=== PATIENT | female | born 1955 | race Caucasian/White ===

== ENCOUNTER 2016-10-29 13:40 | Outpatient (CLI) | payer OTHER | END 2016-10-29 13:41 | disposition home or self-care (01) | DX: Z12.31 Encounter for screening mammogram for malignant neoplasm of breast (principal) ==

== ENCOUNTER 2017-06-01 11:46 | Emergency (ER) | payer OTHER ==
[2017-06-01 13:01] LABS: BASOPHILS % (AUTO) 0.5 %; EOSINOPHILS # (AUTO) 0.1 10^3/uL (0.0-0.7); EOSINOPHILS % (AUTO) 0.7 %; HCT - HEMATOCRIT 37.5 % (37.0-47.0); HGB - HEMOGLOBIN 13.2 g/dL (12.0-16.0); LYMPHOCYTES # (AUTO) 2.6 10^3/uL (1.5-3.5); LYMPHOCYTES % (AUTO) 24.7 %; MEAN CORPUSCULAR HEMOGLOBIN 31.9 pg (27.0-31.0); MEAN CORPUSCULAR HGB CONC 35.4 g/dL (32.0-36.0); MEAN CORPUSCULAR VOLUME 90.2 fL (81.0-99.0); MEAN PLATELET VOLUME 6.7 fL (7.9-10.8); MONOCYTES # (AUTO) 0.6 10^3/uL (0.0-1.0); MONOCYTES % (AUTO) 5.8 %; NEUTROPHILS # (AUTO) 7.1 10^3/uL (1.5-6.6); NEUTROPHILS % (AUTO) 68.3 %; RED BLOOD COUNT 4.15 10^6/uL (4.20-5.40); RED CELL DISTRIBUTION WIDTH 12.2 % (12.0-15.0); UNCORRECTED WHITE BLOOD COUNT 10.4 x10^3/uL; WHITE BLOOD COUNT 10.4 x10^3/uL (4.8-10.8)
--- NOTE | 2017-06-01 13:13 | ED Physician Documentation ---
PD HPI HEADACHE - Stated complaint Stated Complaint: HIGH BP/TOLENTINO/HOT FLASHES - Chief complaint Chief Complaint: General - History obtained from History obtained from: Patient - History of Present Illness Timing - onset: Today, Last night (she had brief (few seconds) of sharp pain in right chest, then was okay. Had another episode brief pain right lateral chest at work. 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, 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 - Present Medications Home Medications: Ambulatory Orders Medication Instructions Recorded Confirmed Gemfibrozil [Lopid] 600 mg PO BIDAC 02/24/13 06/01/17 Estrogens, Conjugated [Premarin] 0.3 mg ORAL DAILY 03/31/16 06/01/17 Hydrochlorothiazide 25 mg ORAL DAILY 03/31/16 06/01/17 Losartan [Cozaar] 100 mg ORAL DAILY 03/31/16 06/01/17 Meloxicam 15 mg PO DAILY 03/31/16 06/01/17 Omeprazole [PriLOSEC] 20 mg ORAL DAILY 03/31/16 06/01/17 - Allergies Allergies/Adverse Reactions: Allergies Allergy/AdvReac Type Severity Reaction Status Date / Time morphine Allergy Rash Verified 06/01/17 11:56 - Social History Does the pt smoke?: No Smoking Status: Never smoker Does the pt drink ETOH?: Yes Does the pt have substance abuse?: No - Immunizations Immunizations are current?: Yes - POLST Patient has POLST: No PD ED PE NORMAL - General General: Alert and oriented X 3, Well developed/nourished - HEENT HEENT: Atraumatic, Ears normal, Pharynx benign - Neck Neck: Supple, no meningeal sign, No adenopathy - Cardiac Cardiac: RRR, No murmur - Abdomen Abdomen: Soft, Non tender - Female Female : Deferred - Rectal Rectal: Deferred - Back Back: No CVA TTP - Derm Derm: Normal color, Warm and dry - Extremities Extremities: No tenderness to palpate, No edema, No calf tenderness / cord - Neuro Neuro: Alert and oriented X 3, No motor deficit, Normal speech - Psych Psych: Normal mood, Normal affect Results - Vitals Vitals: Oxygen O2 Source Room air - EKG (time done) on presentation Rhythm: NSR [place]: Normal Intervals: Normal [place] QRS: Normal Ischemia: Normal ST segments, ST elevation c/w ischemia - Labs Labs: Laboratory Tests 06/01/17 06/01/17 06/01/17 12:54 12:54 12:54 WBC 10.4 RBC 4.15 L Hgb 13.2 Hct 37.5 MCV 90.2 MCH 31.9 H MCHC 35.4 RDW 12.2 Plt Count 318 MPV 6.7 L Neut # 7.1 H Lymph # 2.6 Powell # 0.6 Eos # 0.1 Baso # 0.0 Absolute Nucleated RBC 0.00 Nucleated RBC % 0.0 Sodium 137 Potassium 3.6 Chloride 101 Carbon Dioxide 24 Anion Gap 12.0 BUN 26 H Creatinine 0.9 Estimated GFR (MDRD) 63 L Glucose 104 H Calcium 9.7 Total Bilirubin 0.7 AST 31 ALT 27 Alkaline Phosphatase 47 Troponin I < 0.04 Total Protein 7.6 Albumin 4.7 Globulin 2.9 Albumin/Globulin Ratio 1.6 Lipase 27 PD MEDICAL DECISION MAKING - ED course Complexity details: reviewed results, considered differential (chest pain was fleeting and is not present now. ), d/w patient Departure - Departure Disposition: 01 Home, Self Care Clinical Impression: Hot flashes, Chest discomfort High blood pressure Qualifiers: Hypertension type: unspecified Qualified Code(s): I10 - Essential (primary) hypertension Condition: Stable Record reviewed to determine appropriate education?: Yes Instructions: ED Chest Pain Atypical Unkn Cause, ED HTN Established Follow-Up: Chris Lin DO [Primary Care Provider] - Comments: Check your blood pressure periodically over the next week or so. See if it is consistently high or was just elevated today because of not feeling well. I do not know the cause of your symptoms today. Consider possible viral illness. The hot flashes may have also been hormonal. There is no signs of heart attack or heart irritation going on at the moment. Recheck if you have recurring episodes. Your heart rate was reportedly higher earlier and intermittent irregular heart rate could cause the symptoms he had as well. It appears normal at this time. Follow-up with your primary care later in the week. Call for an appointment. Discharge Date/Time: 06/01/17 13:52
[2017-06-01 13:14] LABS: ALBUMIN/GLOBULIN RATIO 1.6 (1.0-2.2); BILIRUBIN,TOTAL 0.7 mg/dL (0.2-1.0); CALCIUM 9.7 mg/dL (8.5-10.3); CREATININE 0.9 mg/dL (0.4-1.0); POTASSIUM 3.6 mmol/L (3.5-5.0); TOTAL PROTEIN 7.6 g/dL (6.7-8.2)
[2017-06-01 13:44] VITALS: BP 145/76
== END 2017-06-01 13:52 | disposition home or self-care (01) ==
LOC: ED 11:46
DX: N95.1 Menopausal and female climacteric states (principal); R07.9 Chest pain, unspecified; I10 Essential (primary) hypertension
CPT/HCPCS: 36415; 80053; 83690; 84484; 85025; 93005; 99283; 99284

== ENCOUNTER 2017-06-04 07:55 | Outpatient (CLI) | payer OTHER | END 2017-06-04 07:56 | disposition home or self-care (01) | LOC: LAB 07:55 | PROVIDERS: ATTEND Family Medicine | DX: R51 Headache (principal) | CPT/HCPCS: 36415; 85651; 86140 ==

== ENCOUNTER 2017-06-05 10:23 | Outpatient (CLI) | payer OTHER ==
--- NOTE | 2017-06-05 17:06 | CT Report ---
EXAM: CT HEAD EXAM DATE: 06/05/2017 10:54 AM. CLINICAL HISTORY: HEADACHE. COMPARISON: None. TECHNIQUE: Multiaxial CT images were obtained from the foramen magnum to the vertex. IV contrast: Non e. Reformats: Coronal. In accordance with CT protocol optimization, one or more of the following dose reduction techniques w ere utilized for this exam: automated exposure control, adjustment of mA and/or KV based on patient s ize, or use of iterative reconstructive technique. FINDINGS: Parenchyma: No intraparenchymal hemorrhage. No evidence of mass, midline shift, or CT findings of acu te infarction. Rae-white differentiation is distinct. Extraaxial Spaces: Normal for age. No subdural or epidural collections identified. Ventricles: The ventricles and cortical sulci are within normal limits. Sinuses: Imaged paranasal sinuses, orbits, and mastoids show no significant abnormality. Bones: No evidence of fracture or calvarial defect. Other: Diffuse chronic microangiopathic white matter changes are evident. IMPRESSION: Mild generalized age-related cortical atrophic changes without evidence of acute intracra nial abnormality. [facility] Referring Provider Line: [phone] SITE ID: [id number]
== END 2017-06-05 10:24 | disposition home or self-care (01) ==
LOC: DI 10:23
PROVIDERS: ATTEND Family Medicine
DX: R51 Headache (principal)
CPT/HCPCS: 70450

== ENCOUNTER 2017-12-03 09:26 | Emergency (ER) | payer OTHER ==
[2017-12-03 10:44] LABS: BASOPHILS % (AUTO) 0.2 %; EOSINOPHILS % (AUTO) 0.2 %; LYMPHOCYTES # (AUTO) 1.4 10^3/uL (1.5-3.5); LYMPHOCYTES % (AUTO) 11.3 %; MEAN CORPUSCULAR HEMOGLOBIN 31.7 pg (27.0-31.0); MEAN CORPUSCULAR HGB CONC 34.9 g/dL (32.0-36.0); MEAN CORPUSCULAR VOLUME 90.9 fL (81.0-99.0); MEAN PLATELET VOLUME 7.6 fL (7.9-10.8); MONOCYTES # (AUTO) 1.3 10^3/uL (0.0-1.0); MONOCYTES % (AUTO) 10.1 %; NEUTROPHILS # (AUTO) 9.9 10^3/uL (1.5-6.6); NEUTROPHILS % (AUTO) 78.2 %; PLT - PLATELET COUNT 268 10^3/uL (130-450); RED CELL DISTRIBUTION WIDTH 12.5 % (12.0-15.0); WHITE BLOOD COUNT 12.7 x10^3/uL (4.8-10.8)
[2017-12-03] MEDS ORDERED: SODIUM CHLORIDE 0.9% 1,000 ML IV ONE (10:51)
[2017-12-03] MEDS ORDERED: ONDANSETRON 4 MG/2 ML VIAL IVP STA (10:51)
[2017-12-03] MEDS ORDERED: ACETAMINOPHEN 1,000 MG/100 ML 100 ML IV STA (10:52)
[2017-12-03 10:53] LABS: ALBUMIN 3.8 g/dL (3.2-5.5); BILIRUBIN,TOTAL 0.5 mg/dL (0.2-1.0); CALCIUM 8.6 mg/dL (8.5-10.3); CREATININE 0.7 mg/dL (0.4-1.0); TOTAL PROTEIN 7.6 g/dL (6.7-8.2)
[2017-12-03 10:58] LABS: BILIRUBIN,URINE NEGATIVE (NEGATIVE); GLUCOSE, URINE (UA) NEGATIVE (NEGATIVE); KETONES,URINE (UA) TRACE mg/dL (NEGATIVE); LEUKOCYTE ESTERASE, URINE SMALL (NEGATIVE); NITRITE,URINE POSITIVE (NEGATIVE); OCCULT BLOOD,URINE MODERATE (NEGATIVE); PROTEIN,URINE 100 mg/dL (NEGATIVE); UROBILINOGEN,URINE 0.2 (NORMAL) E.U./dL (NORMAL)
[2017-12-03 11:01] LABS: CLARITY,URINE HAZY (CLEAR)
[2017-12-03 11:06] LABS: BACTERIA,URINE Many /HPF (None Seen); SQUAMOUS EPITHELIAL CELL,UR FEW Squamous (<= Few)
[2017-12-03] MEDS ORDERED: cefTRIAXone 1 GM in SODIUM CHLORIDE 0.9% MINIBAG 100 ML IV STA (11:11)
[2017-12-03] MEDS ORDERED: POTASSIUM CHLOR 10 MEQ/100 ML 10 MEQ/100 ML BAG IV ONE (11:11)
[2017-12-03] MEDS ORDERED: POTASSIUM CHLORIDE 20 MEQ TABLET PO STA (11:12)
--- NOTE | 2017-12-03 12:31 | ED Physician Documentation ---
PD HPI ABD PAIN - Stated complaint Stated Complaint: ABD PX/V/D - Chief complaint Chief Complaint: Abd Pain - History obtained from History obtained from: Patient - History of Present Illness Timing - duration: Days (3) Timing - details: Still present Location: Suprapubic Associated symptoms: Nausea, Vomiting Similar symptoms before: Has not had sx before - Additional information Additional information: The patient is a 62-year-old female who presents with lower abdominal pain that started 3 days ago and has gotten worse today. She reports associated nausea with vomiting 3 today. She denies diarrhea or dysuria, but does admit to urgency of urination. She is uncertain about fever. She denies history of similar symptoms in the past. Her past surgical history is significant for appendectomy and hysterectomy. Review of Systems Constitutional: reports: Chills, Fatigue Nose: denies: Congestion Throat: denies: Sore throat Cardiac: denies: Chest pain / pressure Respiratory: denies: Dyspnea, Cough GI: reports: Abdominal Pain, Nausea, Vomiting. denies: Diarrhea : reports: Other (Urgency of urination.). 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 - Present Medications Home Medications: Ambulatory Orders Medication Instructions Recorded Confirmed Gemfibrozil [Lopid] 600 mg PO BIDAC 02/24/13 06/01/17 Estrogens, Conjugated [Premarin] 0.3 mg ORAL DAILY 03/31/16 06/01/17 Hydrochlorothiazide 25 mg ORAL DAILY 03/31/16 06/01/17 Losartan [Cozaar] 100 mg ORAL DAILY 03/31/16 06/01/17 Meloxicam 15 mg PO DAILY 03/31/16 06/01/17 Omeprazole [PriLOSEC] 20 mg ORAL DAILY 03/31/16 06/01/17 Phenazopyridine HCl [Pyridium] 200 mg PO TID PRN #10 tablet 12/03/17 Promethazine [Phenergan] 25 - 50 mg PO Q6H PRN #10 tab 12/03/17 cephALEXin [Cephalexin] 500 mg PO TID #20 tablet 12/03/17 - Allergies Allergies/Adverse Reactions: Allergies Allergy/AdvReac Type Severity Reaction Status Date / Time morphine Allergy Rash Verified 06/01/17 11:56 - Social History Does the pt smoke?: No Smoking Status: Never smoker Does the pt drink ETOH?: Yes Does the pt have substance abuse?: No - Immunizations Immunizations are current?: Yes - POLST Patient has POLST: No PD ED PE NORMAL - Vitals Vital signs reviewed: Yes (Initially hypertensive.) - General General: Alert and oriented X 3, Well developed/nourished - HEENT HEENT: Atraumatic, Moist mucous membranes, Pharynx benign - Neck Neck: Supple, no meningeal sign, No adenopathy, No JVD - Cardiac Cardiac: RRR, No murmur - Respiratory Respiratory: No respiratory distress, Clear bilaterally - Abdomen Abdomen: Normal bowel sounds, Soft, Other (Tenderness to palpation across the lower abdomen, without rebound tenderness or guarding.) - Back Back: No CVA TTP - Derm Derm: No rash - Extremities Extremities: No edema, No calf tenderness / cord - Neuro Neuro: Alert and oriented X 3, No motor deficit, Normal speech Results - Vitals Vitals: Oxygen O2 Source Room air - Labs Labs: Microbiology 12/03/17 10:50 Urine Culture - Final Urine,Clean Catch Escherichia Coli Laboratory Tests 12/03/17 12/03/17 12/03/17 09:50 09:50 10:50 WBC 12.7 H RBC 4.10 L Hgb 13.0 Hct 37.3 MCV 90.9 MCH 31.7 H MCHC 34.9 RDW 12.5 Plt Count 268 MPV 7.6 L Neut # 9.9 H Lymph # 1.4 L [place] # 1.3 H Eos # 0.0 Baso # 0.0 Absolute Nucleated RBC 0.00 Nucleated RBC % 0.0 Sodium 132 L Potassium 2.7 L Chloride 100 L Carbon Dioxide 20 L Anion Gap 12.0 BUN 17 Creatinine 0.7 Estimated GFR (MDRD) 84 L Glucose 132 H Calcium 8.6 Total Bilirubin 0.5 AST 22 ALT 22 Alkaline Phosphatase 63 Total Protein 7.6 Albumin 3.8 Globulin 3.8 Albumin/Globulin Ratio 1.0 Lipase 11 L Urine Color YELLOW Urine Clarity HAZY Urine pH 6.0 Ur Specific [place] 1.025 Urine Protein 100 H Urine Glucose (UA) NEGATIVE Urine Ketones TRACE Urine Occult Blood MODERATE H Urine Nitrite POSITIVE H Urine Bilirubin NEGATIVE Urine Urobilinogen 0.2 (NORMAL) Ur Leukocyte Esterase SMALL H Urine RBC 6-10 H Urine WBC >25 H Ur Squamous Epith Cells FEW Squamous Urine Bacteria Many H Ur Microscopic Review INDICATED Urine Culture Comments INDICATED PD MEDICAL DECISION MAKING - ED course Complexity details: reviewed results, re-evaluated patient, considered differential, d/w patient, d/w family ED course: The patient's presentation is most consistent with acute cystitis with associated vomiting, mild dehydration, and hypokalemia. Her presentation does not suggest sepsis or pyelonephritis. CBC reveals an elevated white count of 12.7. Chemistry panel reveals hypokalemia with potassium of 2.7. Urinalysis is positive for greater than 25 white cells per high-powered field and many bacteria. Culture and sensitivity are pending. Treatment in the emergency department included administration of normal saline 1 L IV, ceftriaxone 1 g IV, acetaminophen 1 g IV, potassium 20 mEq orally and 10 mEq IV. At the time of discharge the patient felt subjectively much improved and her vital signs were normal. I discussed with her and her the diagnosis, antibiotic treatment and outpatient follow-up, as well as potentially worrisome signs or symptoms that should prompt reevaluation in the emergency department. She is being discharged with prescriptions for cephalexin , Pyridium, and Phenergan. Departure - Departure Disposition: 01 Home, Self Care Clinical Impression: Hypokalemia Urinary tract infection Qualifiers: Urinary tract infection type: acute cystitis Hematuria presence: with hematuria Qualified Code(s): N30.01 - Acute cystitis with hematuria Vomiting Qualifiers: Vomiting type: unspecified Vomiting Intractability: non-intractable Nausea presence: with nausea Qualified Code(s): R11.2 - Nausea with vomiting, unspecified Condition: Stable Instructions: ED UTI Cystitis Female Follow-Up: Chris Lin DO [Primary Care Provider] - Prescriptions: cephALEXin [Cephalexin] 500 mg PO TID #20 tablet Phenazopyridine HCl [Pyridium] 200 mg PO TID PRN #10 tablet PRN Reason: pain with urination Promethazine [Phenergan] 25 - 50 mg PO Q6H PRN #10 tab PRN Reason: Nausea / Vomiting Comments: Drink plenty of fluids, including cranberry juice. Take cephalexin 3 times daily as prescribed. You can use Pyridium as prescribed if needed for painful urination. You can use Phenergan as prescribed if needed for nausea. Follow up with your primary physician within 1-2 weeks. Call to schedule appointment. Return to the emergency department if you develop increasing abdominal pain, persistent vomiting, fever with shaking chills, or otherwise worsening symptoms. Discharge Date/Time: 12/03/17 12:45
[2017-12-03 12:46] VITALS: BP 112/74
== END 2017-12-03 12:45 | disposition home or self-care (01) ==
LOC: ED 09:26
DX: E87.6 Hypokalemia (principal); N30.01 Acute cystitis with hematuria; R11.2 Nausea with vomiting, unspecified; E86.0 Dehydration; I10 Essential (primary) hypertension; E78.00 Pure hypercholesterolemia, unspecified
CPT/HCPCS: 36415; 80053; 81001; 83690; 85025; 87086; 87181; 96365; 96368; 96375; 99283; 99284; A9270; J0131; 81003

== ENCOUNTER 2017-12-07 11:50 | Outpatient (CLI) | payer OTHER ==
[2017-12-07 18:39] LABS: BASOPHILS % (AUTO) 0.6 %; HGB - HEMOGLOBIN 13.8 g/dL (12.0-16.0); LYMPHOCYTES % (AUTO) 31.3 %; MEAN CORPUSCULAR HEMOGLOBIN 31.1 pg (27.0-31.0); MEAN CORPUSCULAR HGB CONC 33.4 g/dL (32.0-36.0); MEAN PLATELET VOLUME 6.9 fL (7.9-10.8); MONOCYTES % (AUTO) 6.3 %; NEUTROPHILS % (AUTO) 59.8 %; PLT - PLATELET COUNT 495 10^3/uL (130-450); RED BLOOD COUNT 4.43 10^6/uL (4.20-5.40); RED CELL DISTRIBUTION WIDTH 12.6 % (12.0-15.0); WHITE BLOOD COUNT 9.6 x10^3/uL (4.8-10.8)
[2017-12-07 18:44] LABS: ABNORMAL LYMPHS % (MANUAL) 0 %
[2017-12-07 18:58] LABS: BUN - BLOOD UREA NITROGEN 18 mg/dL (6-20); CALCIUM 9.3 mg/dL (8.5-10.3); CARBON DIOXIDE - CO2 23 mmol/L (21-32); CHLORIDE 105 mmol/L (101-111); CHOLESTEROL 186 mg/dL; CREATININE 0.7 mg/dL (0.4-1.0); GFR - MDRD 84 (>89); GLUCOSE 91 mg/dL (70-100); HDL CHOLESTEROL 47 mg/dL; LDL CHOLESTEROL,CALCULATED 100 mg/dL; LDL/HDL RATIO 2.1 (<4.4); SODIUM 138 mmol/L (135-145); VLDL CHOLESTEROL 39 mg/dL
[2017-12-07 19:05] LABS: BAND NEUTROPHILS % (MANUAL) 4 %; DIFFERENTIAL COMMENT MANUAL DIFFERENTIAL; EOSINOPHILS # (MANUAL) 0.5 10^3/uL (0-0.7); LYMPHOCYTES # (MANUAL) 2.4 10^3/uL (1.5-3.5); LYMPHOCYTES % (MANUAL) 25 %; METAMYELOCYTES % (MANUAL) 1 %; MONOCYTES # (MANUAL) 0.5 10^3/uL (0.0-1.0); MYELOCYTES % (MANUAL) 1 %; NEUTROPHILS % (MANUAL) 59 %; PLATELET ESTIMATE, MANUAL INCREASED (>450,000) (NORMAL); PLATELET MORPHOLOGY NORMAL APPEARANCE (NORMAL); RBC MORPHOLOGY (MULTIPLE) NORMAL APPEARANCE (NORMAL)
== END 2017-12-07 11:51 | disposition home or self-care (01) ==
LOC: LAB.WCP 11:50
PROVIDERS: ATTEND Physician Assistant
DX: Z00.00 Encounter for general adult medical examination without abnormal findings (principal); E87.6 Hypokalemia; R53.83 Other fatigue
CPT/HCPCS: 36415; 80048; 80061; 83721; 84443; 85025

== ENCOUNTER 2018-05-03 13:22 | Outpatient (CLI) | payer OTHER ==
--- NOTE | 2018-05-04 16:34 | DEXA Report ---
Reason: POSTMENOPAUSAL STATUS Procedure Date: 05/03/2018 Accession Number: [id number] / [id number] Procedure: DEX - Dexa Spine and/or Hip CPT Code: FULL RESULT: EXAM: Dexa Spine and/or Hip DATE: 05/03/2018 2:15 PM CLINICAL HISTORY: POSTMENOPAUSAL STATUS TECHNIQUE: Dual energy x-ray absorptiometry (DXA) was performed on a IOCOM System. Regions measured are the AP Spine, femoral neck, and if needed forearm. COMPARISON: None. In accordance with the International Society for Clinical Densitometry (ISCD) guidelines, data from previous exams may be reanalyzed using current recommendations and techniques. This is done to allow a more accurate basis for comparison with the current study. FINDINGS: The data for the lumbar spine is as follows: BMD (g/cm/cm) T-SCORE Z-SCORE REGION L1 1.209 0.7 1.7 L2 1.289 0.7 1.8 L3 1.403 1.7 2.7 L4 1.330 1.1 2.1 TOTAL 1.313 1.1 2.1 NOTE: All evaluable vertebrae are used for classification The data for the hip is as follows: BMD (g/cm/cm) T-SCORE Z-SCORE REGION Neck 1.073 0.3 1.4 TOTAL 0.969 -0.3 0.5 NOTE: The femoral neck or total proximal femur, whichever is lowest, is used for classification. IMPRESSION: THE WHO CLASSIFICATION BASED ON THE INTERNATIONAL REFERENCE STANDARD IS NORMAL. THE FRACTURE RISK IS NOT INCREASED. RECOMMENDATION: Patients with diagnosis of osteoporosis or osteopenia should have regular bone mineral density assessment. For those eligible for Medicare, routine testing is allowed once every 2 years. Testing frequency can be increased for patients who have rapidly progressing disease or for those who are receiving medical therapy to restore bone mass. COMMENT: World Health Organization (WHO) definitions for osteoporosis and osteopenia: NORMAL BMD: T-score at -1.0 or higher, fracture risk is low OSTEOPENIA BMD: T-score between -1.0 and -2.5, fracture risk is increased. OSTEOPOROSIS BMD: T-score at -2.5 or lower, fracture risk is high. National Osteoporosis Foundation recommends: 1. Obtain adequate dietary calcium (at least 1200 mg per day) and vitamin D (400-800 international units per day). 2. Participate, as appropriate, in regular weightbearing and muscle-strengthening exercise. 3. Avoid tobacco use and reduce alcohol and caffeine intake. 4. For more detailed information see the website at www.NOF.org.
== END 2018-05-03 13:23 | disposition home or self-care (01) ==
LOC: DI 13:22
PROVIDERS: ATTEND Family Medicine
DX: Z78.0 Asymptomatic menopausal state (principal)
CPT/HCPCS: 77080

== ENCOUNTER 2018-09-06 11:44 | Emergency (ER) | payer OTHER, BC ==
--- NOTE | 2018-09-06 12:57 | XRAY Report ---
Reason: shoulder injury while working Procedure Date: 09/06/2018 Accession Number: [id number] / [id number] Procedure: XR - Shoulder 3 View RT CPT Code: FULL RESULT: EXAM: RIGHT SHOULDER RADIOGRAPHY EXAM DATE: 09/06/2018 12:51 PM. CLINICAL HISTORY: Shoulder injury while working. COMPARISON: None. TECHNIQUE: 3 views. FINDINGS: Bones: No fractures or bone lesions. Joints: Mild-moderate AC joint DJD. Glenohumeral joint appears preserved. Soft Tissues: Unremarkable. IMPRESSION: 1. No acute osseous abnormality. 2. DJD. [facility]
--- NOTE | 2018-09-06 13:02 | ED Physician Documentation ---
PD HPI UPPER EXT INJURY - Stated complaint Stated Complaint: R SHOULDER INJ - Chief complaint Chief Complaint: Trauma Ext - History obtained from History obtained from: Patient - History of Present Illness Location: Right, Shoulder Type of injury: Twist Where injury occurred: Work Timing - onset: Today Timing - duration: Hours Timing - details: Abrupt onset, Still present Improved by: Rest, Immobilization Worsened by: Moving, Palpating Associated symptoms: No: Weakness, Numbness, Swelling Contributing factors: No: Anticoagulated Similar symptoms before: Has not had sx before Recently seen: Not recently seen - Additonal information Additional information: 63-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 She has pain with any movement of the shoulder and the pain is severe. She does note that she does do some crocheting did a lot of extra crocheting during the holiday season and did not have pain in her shoulder associated with this. Review of Systems Constitutional: denies: Fever Eyes: denies: Decreased vision Ears: denies: Ear pain Nose: reports: Congestion. denies: Rhinorrhea / runny nose Throat: denies: Sore throat Cardiac: denies: Chest pain / pressure, Palpitations Respiratory: reports: Cough. denies: Dyspnea GI: denies: Nausea, Vomiting : denies: Dysuria, Frequency Skin: denies: Rash Musculoskeletal: reports: Extremity pain, Joint pain. 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 HEENT: Cataracts - Present Medications Home Medications: Ambulatory Orders Medication Instructions Recorded Confirmed Gemfibrozil [Lopid] 600 mg PO BIDAC 02/24/13 06/01/17 Estrogens, Conjugated [Premarin] 0.3 mg ORAL DAILY 03/31/16 06/01/17 Hydrochlorothiazide 25 mg ORAL DAILY 03/31/16 06/01/17 Losartan [Cozaar] 100 mg ORAL DAILY 03/31/16 06/01/17 Meloxicam 15 mg PO DAILY 03/31/16 06/01/17 Omeprazole [PriLOSEC] 20 mg ORAL DAILY 03/31/16 06/01/17 Phenazopyridine HCl [Pyridium] 200 mg PO TID PRN #10 tablet 12/03/17 Promethazine [Phenergan] 25 - 50 mg PO Q6H PRN #10 tab 12/03/17 cephALEXin [Cephalexin] 500 mg PO TID #20 tablet 12/03/17 Hydrocodone/Acetaminophen 1 - 2 each PO Q6H PRN #14 tablet 09/06/18 [Hydrocodon-Acetaminophen 5-325] - Allergies Allergies/Adverse Reactions: Allergies Allergy/AdvReac Type Severity Reaction Status Date / Time morphine Allergy Rash Verified 09/06/18 12:03 - Social History Does the pt smoke?: No Smoking Status: Former smoker Does the pt drink ETOH?: Yes Does the pt have substance abuse?: No - Immunizations Immunizations are current?: Yes - POLST Patient has POLST: No PD ED PE NORMAL - Vitals Vital signs reviewed: Yes (hypertensive mild ) - General General: Alert and oriented X 3, No acute distress, Well developed/nourished - HEENT HEENT: Atraumatic, PERRL, EOMI - Neck Neck: Supple, no meningeal sign - Respiratory Respiratory: No respiratory distress - Derm Derm: Normal color, Warm and dry, No rash - Extremities Extremities: No deformity, No edema, Other (There is tenderness to the deltoid area on the right and to the subacromial space. There is palpable fullness and pain with ROM testing. She is able to hold the shoulder in abduction. Distal n/v is intact. 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 No acute osseous abnormality. 2 DJD.), EMP read indepedently, See rad report PD MEDICAL DECISION MAKING - ED course Complexity details: reviewed old records, reviewed results, re-evaluated lorrie wilks, considered differential, d/w patient ED course: 63-year-old female who has onset of right shoulder pain with overhead movement now has pain to any movement of the shoulder she does appear to have some fullness and I suspect she has a bursitis that is related to her excessive crocheting and exacerbated by overhead movement. She now has pain with any movement. In the emergency department she is administered dexamethasone 10 mg orally she is placed into a sling and will have her follow-up with orthopedics for consideration of injection. Departure - Departure Disposition: 01 Home, Self Care Clinical Impression: Bursitis Qualifiers: Bursitis location: shoulder Laterality: right Qualified Code(s): M75.51 - Bursitis of right shoulder Condition: Stable Instructions: ED Bursitis Follow-Up: Chris Lin DO [Primary Care Provider] - [facility] [Provider Group] Prescriptions: Hydrocodone/Acetaminophen [Hydrocodon-Acetaminophen 5-325] 1 - 2 each PO Q6H PRN #14 tablet PRN Reason: pain Forms: Activity restrictions
[2018-09-06] MEDS ORDERED: DEXAMETHASONE 10 MG/ML VIAL PO STA (13:14)
[2018-09-06 13:36] VITALS: BP 117/79
== END 2018-09-06 13:42 | disposition home or self-care (01) ==
LOC: ED 11:44
DX: M75.51 Bursitis of right shoulder (principal); M70.811 Other soft tissue disorders related to use, overuse and pressure, right shoulder; Y93.89 Activity, other specified; I10 Essential (primary) hypertension; Z87.891 Personal history of nicotine dependence
CPT/HCPCS: 99283

== ENCOUNTER 2018-11-28 08:00 | Outpatient (CLI) | payer BC, OTHER ==
[2018-11-30 12:52] LABS: SOURCE VAG
[2018-11-30 13:25] LABS: HSV 2 DNA DETECTED
== END 2018-11-28 23:59 | disposition home or self-care (01) ==
LOC: LAB.R 08:00
PROVIDERS: ATTEND Family Medicine
DX: N89.9 Noninflammatory disorder of vagina, unspecified (principal)
CPT/HCPCS: 87529

== ENCOUNTER 2019-05-12 13:35 | Outpatient (CLI) | payer BC ==
--- NOTE | 2019-05-15 16:36 | Mammography Report ---
Reason: SCREENING MAMMO Procedure Date: 05/12/2019 Accession Number: [id number] / [id number] Procedure: LUDWIN - Screening Mammo w/Huber CPT Code: FULL RESULT: EXAM: Screening Mammo w/Huber DATE: 05/12/2019 2:17 PM CLINICAL HISTORY: Routine screening TECHNIQUE: (B) - Bilateral CC and MLO views were obtained. COMPARISON: 10/29/2016, 10/18/2015, 06/06/2014 and 01/17/2013 PARENCHYMAL PATTERN: (A) - The breasts demonstrate scattered fibroglandular densities bilaterally. FINDINGS: No significant interval change. There are no suspicious masses, calcifications, or areas of distortion. IMPRESSION: Negative examination. BI-RADS category 1. RECOMMENDATION: (ANNUAL) - Recommend routine annual screening mammography. BI-RADS CATEGORY: (1) - Negative. STANDARD QUALIFYING STATEMENTS: 1. This examination was not reviewed with the aid of Computer-Aided Detection (CAD). 2. A negative or benign imaging report should not preclude biopsy if clinically suspicious findings are present. 3. Dense breasts may obscure an underlying neoplasm. 4. This examination was reviewed with the aid of 3D breast imaging (tomosynthesis).
== END 2019-05-12 13:36 | disposition home or self-care (01) ==
LOC: DI 13:35
DX: Z12.31 Encounter for screening mammogram for malignant neoplasm of breast (principal)
CPT/HCPCS: 77063; 77067

== ENCOUNTER 2021-03-19 13:58 | Outpatient (CLI) | payer BC, MEDICARE ==
[2021-03-19 18:03] LABS: BASOPHILS # (AUTO) 0.1 10^3/uL (0.0-0.1); BASOPHILS % (AUTO) 0.8 %; EOSINOPHILS # (AUTO) 0.1 10^3/uL (0.0-0.7); EOSINOPHILS % (AUTO) 2.3 %; HCT - HEMATOCRIT 38.9 % (37.0-47.0); LYMPHOCYTES # (AUTO) 2.1 10^3/uL (1.5-3.5); LYMPHOCYTES % (AUTO) 33.5 %; MEAN CORPUSCULAR HEMOGLOBIN 31.9 pg (27.0-31.0); MEAN CORPUSCULAR HGB CONC 33.4 g/dL (32.0-36.0); MEAN CORPUSCULAR VOLUME 95.3 fL (81.0-99.0); MEAN PLATELET VOLUME 9.6 fL (7.9-10.8); MONOCYTES # (AUTO) 0.5 10^3/uL (0.0-1.0); MONOCYTES % (AUTO) 7.6 %; NEUTROPHILS # (AUTO) 3.4 10^3/uL (1.5-6.6); NEUTROPHILS % (AUTO) 55.3 %; PLT - PLATELET COUNT 303 10^3/uL (130-450); RED BLOOD COUNT 4.08 10^6/uL (4.20-5.40); RED CELL DISTRIBUTION WIDTH 12.7 % (12.0-15.0); WHITE BLOOD COUNT 6.2 x10^3/uL (4.8-10.8)
[2021-03-19 18:14] LABS: ALBUMIN 4.3 g/dL (3.2-5.5); ALBUMIN/GLOBULIN RATIO 1.4 (1.0-2.2); ALKALINE PHOSPHATASE 45 IU/L (42-121); ALT ALANINE AMINOTRANSFERASE 26 IU/L (10-60); AST ASPARTATE AMINOTRANSFERASE 27 IU/L (10-42); BILIRUBIN,TOTAL 0.7 mg/dL (0.2-1.0); BUN - BLOOD UREA NITROGEN 20 mg/dL (6-20); CARBON DIOXIDE - CO2 25 mmol/L (21-32); CHLORIDE 106 mmol/L (101-111); CHOL/HDL RATIO 2.9 (<4.4); CHOLESTEROL 201 mg/dL; CREATININE 0.9 mg/dL (0.4-1.0); GFR - MDRD 62 (>89); GLUCOSE 79 mg/dL (70-100); HDL CHOLESTEROL 70 mg/dL; LDL CHOLESTEROL,CALCULATED 102 mg/dL; LDL/HDL RATIO 1.5 (<4.4); POTASSIUM 3.7 mmol/L (3.5-5.0); SODIUM 139 mmol/L (135-145); TOTAL PROTEIN 7.3 g/dL (6.7-8.2); TRIGLYCERIDES 147 mg/dL; VLDL CHOLESTEROL 29 mg/dL
[2021-03-19 18:27] LABS: THYROID STIMULATING HORMONE 0.77 uIU/mL (0.34-5.60)
== END 2021-03-19 23:59 | disposition home or self-care (01) ==
LOC: LAB.WCP 13:58
PROVIDERS: ATTEND Family Medicine
DX: I10 Essential (primary) hypertension (principal); E78.5 Hyperlipidemia, unspecified
CPT/HCPCS: 36415; 80053; 80061; 83721; 84443; 85025

== ENCOUNTER 2021-06-05 10:15 | Outpatient (CLI) | payer MEDICARE ==
--- NOTE | 2021-06-06 10:10 | Mammography Report ---
BILATERAL DIGITAL SCREENING MAMMOGRAM 3D/2D: 06/05/2021 CLINICAL: Routine screening. Comparison is made to exams dated: 05/12/2019 mammogram, 10/18/2015 mammogram, 06/06/2014 mammogram, 01/04 mammogram, and 05/19/2011 mammogram - [facility]. The tissue of both breasts is predominantly fatty. There are benign calcifications in both breasts. No significant masses, calcifications, or other findings are seen in either breast. There has been no significant interval change. IMPRESSION: BENIGN There is no mammographic evidence of malignancy. A 1 year screening mammogram is recommended. This exam was interpreted at Station ID: [id number]. NOTE: For mammograms, a report in lay terms will be sent to the patient. Approximately 15% of breast malignancies will not be visualized mammographically. In the management of a palpable breast mass, a negative mammogram must not discourage biopsy of a clinically suspicious lesion. Electronically Signed By: Julio Carballo acr/penrad:06/05/2021 11:44:11 ACR BI-RADS Category 2: Benign Finding(s) 3342F PARENCHYMAL PATTERN: (F) - The breast(s) demonstrate(s) diffuse fatty replacement. BI-RADS CATEGORY: (2) - 2 RECOMMENDATION: (ANNUAL) - Recommend routine annual screening mammography. [id number] 1 year screening LATERALITY: (B)
== END 2021-06-05 10:16 | disposition home or self-care (01) ==
LOC: DI 10:15
DX: Z12.31 Encounter for screening mammogram for malignant neoplasm of breast (principal)

== ENCOUNTER 2021-11-03 13:19 | Outpatient (CLI) | payer MEDICARE ==
[2021-11-03 13:46] LABS: BASOPHILS # (AUTO) 0.1 10^3/uL (0.0-0.1); BASOPHILS % (AUTO) 0.8 %; EOSINOPHILS # (AUTO) 0.2 10^3/uL (0.0-0.7); HCT - HEMATOCRIT 37.4 % (37.0-47.0); LYMPHOCYTES # (AUTO) 2.1 10^3/uL (1.5-3.5); LYMPHOCYTES % (AUTO) 32.2 %; MEAN CORPUSCULAR HEMOGLOBIN 31.7 pg (27.0-31.0); MEAN CORPUSCULAR HGB CONC 34.8 g/dL (32.0-36.0); MEAN CORPUSCULAR VOLUME 91.2 fL (81.0-99.0); MEAN PLATELET VOLUME 8.8 fL (7.9-10.8); MONOCYTES # (AUTO) 0.5 10^3/uL (0.0-1.0); MONOCYTES % (AUTO) 7.2 %; NEUTROPHILS # (AUTO) 3.6 10^3/uL (1.5-6.6); NEUTROPHILS % (AUTO) 56.5 %; PLT - PLATELET COUNT 275 10^3/uL (130-450); RED CELL DISTRIBUTION WIDTH 12.5 % (12.0-15.0); WHITE BLOOD COUNT 6.4 x10^3/uL (4.8-10.8)
[2021-11-03 14:00] LABS: ALBUMIN 4.3 g/dL (3.2-5.5); ALBUMIN/GLOBULIN RATIO 1.5 (1.0-2.2); ALKALINE PHOSPHATASE 48 IU/L (42-121); ALT ALANINE AMINOTRANSFERASE 20 IU/L (10-60); AST ASPARTATE AMINOTRANSFERASE 23 IU/L (10-42); BILIRUBIN,TOTAL 0.8 mg/dL (0.2-1.0); BUN - BLOOD UREA NITROGEN 20 mg/dL (6-20); CALCIUM 9.3 mg/dL (8.5-10.3); CARBON DIOXIDE - CO2 22 mmol/L (21-32); CHLORIDE 108 mmol/L (101-111); CHOL/HDL RATIO 3.5 (<4.4); CHOLESTEROL 232 mg/dL; CREATININE 0.9 mg/dL (0.4-1.0); GFR - MDRD 62 (>89); GLUCOSE 108 mg/dL (70-100); HDL CHOLESTEROL 66 mg/dL; LDL CHOLESTEROL,CALCULATED 134 mg/dL; POTASSIUM 3.4 mmol/L (3.5-5.0); SODIUM 137 mmol/L (135-145); TOTAL PROTEIN 7.2 g/dL (6.7-8.2); TRIGLYCERIDES 159 mg/dL; VLDL CHOLESTEROL 32 mg/dL
== END 2021-11-03 13:20 | disposition home or self-care (01) ==
LOC: LAB 13:19
PROVIDERS: ATTEND Family Medicine
DX: I10 Essential (primary) hypertension (principal)
CPT/HCPCS: 36415; 80053; 80061; 83721; 85025

== ENCOUNTER 2021-11-26 13:16 | Outpatient (CLI) | payer MEDICARE ==
[2021-11-26 13:45] LABS: FECAL OCCULT BLOOD (FIT) NEGATIVE (NEGATIVE)
== END 2021-11-26 13:17 | disposition home or self-care (01) ==
LOC: LAB 13:16
PROVIDERS: ATTEND Family Medicine
DX: Z12.11 Encounter for screening for malignant neoplasm of colon (principal)
CPT/HCPCS: 82274

== ENCOUNTER 2022-04-01 08:00 | Outpatient (CLI) | payer MEDICARE | END 2022-04-01 23:59 | disposition home or self-care (01) | LOC: LAB.N 08:00 | PROVIDERS: ATTEND Physician Assistant | DX: R21 Rash and other nonspecific skin eruption (principal) | CPT/HCPCS: 87070; 87205; 87252 ==

== ENCOUNTER 2022-10-27 12:39 | Outpatient (CLI) | payer MEDICARE ==
[2022-10-27 12:57] LABS: BASOPHILS % (AUTO) 0.6 %; EOSINOPHILS # (AUTO) 0.1 10^3/uL (0.0-0.7); EOSINOPHILS % (AUTO) 0.9 %; HCT - HEMATOCRIT 37.3 % (37.0-47.0); HGB - HEMOGLOBIN 12.3 g/dL (12.0-16.0); LYMPHOCYTES # (AUTO) 1.7 10^3/uL (1.5-3.5); MEAN PLATELET VOLUME 8.9 fL (7.9-10.8); MONOCYTES # (AUTO) 0.3 10^3/uL (0.0-1.0); MONOCYTES % (AUTO) 4.4 %; NEUTROPHILS # (AUTO) 4.2 10^3/uL (1.5-6.6); NEUTROPHILS % (AUTO) 66.8 %; PLT - PLATELET COUNT 345 10^3/uL (130-450); RED BLOOD COUNT 3.97 10^6/uL (4.20-5.40); RED CELL DISTRIBUTION WIDTH 12.3 % (12.0-15.0); WHITE BLOOD COUNT 6.4 x10^3/uL (4.8-10.8)
[2022-10-27 13:16] LABS: ALBUMIN 4.1 g/dL (3.2-5.5); ALBUMIN/GLOBULIN RATIO 1.1 (1.0-2.2); ALKALINE PHOSPHATASE 48 IU/L (42-121); ALT ALANINE AMINOTRANSFERASE 13 IU/L (10-60); AST ASPARTATE AMINOTRANSFERASE 19 IU/L (10-42); BILIRUBIN,TOTAL 0.6 mg/dL (0.2-1.0); BUN - BLOOD UREA NITROGEN 28 mg/dL (6-20); CALCIUM 10.1 mg/dL (8.5-10.3); CARBON DIOXIDE - CO2 25 mmol/L (21-32); CHLORIDE 106 mmol/L (101-111); CHOL/HDL RATIO 3.2 (<4.4); CHOLESTEROL 207 mg/dL; GFR - MDRD 55 (>89); GLUCOSE 110 mg/dL (70-100); HDL CHOLESTEROL 65 mg/dL; LDL CHOLESTEROL,CALCULATED 122 mg/dL; LDL/HDL RATIO 1.9 (<4.4); SODIUM 143 mmol/L (135-145); TOTAL PROTEIN 7.8 g/dL (6.7-8.2); TRIGLYCERIDES 99 mg/dL; VLDL CHOLESTEROL 20 mg/dL
[2022-10-27 13:40] LABS: THYROID STIMULATING HORMONE 0.65 uIU/mL (0.34-5.60)
== END 2022-10-27 12:40 | disposition home or self-care (01) ==
LOC: LAB 12:39
PROVIDERS: ATTEND Nurse Practitioner Family
DX: I10 Essential (primary) hypertension (principal); E78.5 Hyperlipidemia, unspecified
CPT/HCPCS: 36415; 80053; 80061; 83721; 84443; 85025

== ENCOUNTER 2023-02-26 08:20 | Day surgery (SDC) | payer MEDICARE ==
[2023-02-26] MEDS ORDERED: LACTATED RINGERS 1,000 ML IV ONE (08:42)
--- NOTE | 2023-02-26 08:42 | ANESTHESIA ---
Pre-Anesthesia VS, & Labs - Diagnosis screening colonoscopy - Procedure colonoscopy Height: 5 ft 6 in Weight (kg): 72 kg Body Mass Index: 25.6 BMI Classification: Overweight - NPO Other (prep as directed) - Is Patient ?: No Home Medications and Allergies gemfibroziL [Lopid] 600 mg PO BIDAC 02/24/13 Estrogens, Conjugated [Premarin] 0.3 mg ORAL DAILY 03/31/16 Losartan [Cozaar] 100 mg ORAL DAILY 03/31/16 Meloxicam 15 mg PO DAILY 03/31/16 Omeprazole [PriLOSEC] 20 mg ORAL DAILY 03/31/16 hydroCHLOROthiazide [Hydrochlorothiazide] 25 mg ORAL DAILY 03/31/16 Allergies/Adverse Reactions: Allergies Allergy/AdvReac Type Severity Reaction Status Date / Time morphine Allergy Rash Verified 02/25/23 12:38 Anes History & Medical History - Anesthetic History Anesthesia Complications: reports: No previous complications - Medical History Cardiovascular: reports: Hypertension, High cholesterol Pulmonary: reports: COPD Gastrointestinal: reports: GERD Urinary: reports: None Musculoskeletal: reports: None Endocrine/Autoimmune: reports: None Blood Disorders: reports: None Skin: reports: None Smoking Status: Former smoker - Surgical History General: reports: Appendectomy Eyes Ears Nose Throat (EENT): reports: Cataracts Urologic: reports: Bladder surgery Gynecologic: reports: Hysterectomy, Oophrectomy Exam General: Alert, Oriented x3 Dental: WNL Mouth Opening: Greater than 4 Fingerbreadths Neck Mobility: Normal Mallampati classification: II Thyromental Distance: greater than 6 cm Respiratory: Lungs clear Cardiovascular: Regular rate Plan Anesthesia Type: Total IV Consent for Procedure(s) Verified and Reviewed: Yes Code Status: Attempt Resuscitation ASA classification: 2-Mild systemic disease Is this case an emergency?: No
[2023-02-26] MEDS ORDERED: PROPOFOL 500 MG/50 ML 500 MG/50 ML VIAL ONE (08:57)
[2023-02-26] MEDS ORDERED: LACTATED RINGERS 450 ML IV ONE (09:31)
[2023-02-26 10:04] VITALS: BP 117/67
--- NOTE | 2023-02-26 10:48 | ANESTHESIA POST OP EVALUATION ---
Anesthesia Post Eval - Post Anesthesia Eval Vitals: Last Vital Signs Temp 36.2 C L 02/26/23 09:57 Pulse 73 02/26/23 09:57 Resp 21 02/26/23 09:57 BP 117/67 02/26/23 09:57 Pulse Ox 100 02/26/23 09:57 O2 Flow Rate CV Function Including HR & BP: Stable Pain Control: Satisfactory Nausea & Vomiting: Negative Mental Status: Baseline Respiratory Status: Airway Patent Hydration Status: Satisfactory Anesthesia Complications: None
== END 2023-02-26 08:21 | disposition home or self-care (01) ==
LOC: SDS 08:20
PROVIDERS: ATTEND Surgery
PROC: 0DBP8ZZ Excision of Rectum, Via Natural or Artificial Opening Endoscopic (ICD-10-PCS; principal; 2023-02-26 09:30)
DX: Z12.11 Encounter for screening for malignant neoplasm of colon (principal); K62.1 Rectal polyp; K57.30 Diverticulosis of large intestine without perforation or abscess without bleeding; J44.9 Chronic obstructive pulmonary disease, unspecified; Z87.891 Personal history of nicotine dependence
CPT/HCPCS: 45380; J7120

== ENCOUNTER 2023-10-20 07:56 | Outpatient (CLI) | payer MEDICARE ==
--- NOTE | 2023-10-22 09:13 | Mammography Report ---
BILATERAL DIGITAL SCREENING MAMMOGRAM 3D/2D: 10/20/2023 CLINICAL: Routine screening. Comparison is made to exams dated: 06/05/2021 mammogram, 05/12/2019 mammogram, 10/18/2015 mammogram, and 06/06/2014 mammogram - [facility]. Both breasts are heterogeneously dense, which may obscure small masses (category c / 51-75% glandular tissue). There are benign calcifications in both breasts. No significant masses, calcifications, or other findings are seen in either breast. There has been no significant interval change. IMPRESSION: BENIGN There is no mammographic evidence of malignancy. A 1 year screening mammogram is recommended. Based on the Tyrer Cuzick model (a risk assessment model) the patient's lifetime risk is 4.0% and her 10 year risk is 2.5%. According to the ACR, ACS, and NCCN guidelines, an annual breast MRI exam perez g with mammogram is recommended if the patient's lifetime risk is 20% or greater. This exam was interpreted at Station ID: [id number]. NOTE: For mammograms, a report in lay terms will be sent to the patient. Approximately 15% of breast malignancies will not be visualized mammographically. In the management of a palpable breast mass, a negative mammogram must not discourage biopsy of a clinically suspicious lesion. Electronically Signed By: Riky orr/vince:10/21/2023 09:36:38 letter sent: No_Letter ACR BI-RADS Category 2: Benign Finding(s) 3342F PARENCHYMAL PATTERN: (D) - The breast(s) demonstrate(s) heterogeneously dense fibroglandular matthieu jay. BI-RADS CATEGORY: (2) - 2 Mammogram [id number] 1 year screening LATERALITY: (B)
== END 2023-10-20 07:57 | disposition home or self-care (01) ==
LOC: DI 07:56
DX: Z12.31 Encounter for screening mammogram for malignant neoplasm of breast (principal); R92.333 Mammographic heterogeneous density, bilateral breasts; R92.1 Mammographic calcification found on diagnostic imaging of breast

== ENCOUNTER 2023-10-20 07:56 | Outpatient (CLI) | payer MEDICARE ==
[2023-10-20 08:57] LABS: BASOPHILS # (AUTO) 0.1 10^3/uL (0.0-0.1); EOSINOPHILS # (AUTO) 0.1 10^3/uL (0.0-0.7); EOSINOPHILS % (AUTO) 1.8 %; HCT - HEMATOCRIT 38.9 % (37.0-47.0); HGB - HEMOGLOBIN 12.9 g/dL (12.0-16.0); LYMPHOCYTES # (AUTO) 2.3 10^3/uL (1.5-3.5); LYMPHOCYTES % (AUTO) 37.7 %; MEAN CORPUSCULAR HEMOGLOBIN 31.1 pg (27.0-31.0); MEAN CORPUSCULAR HGB CONC 33.2 g/dL (32.0-36.0); MEAN CORPUSCULAR VOLUME 93.7 fL (81.0-99.0); MEAN PLATELET VOLUME 8.8 fL (7.9-10.8); MONOCYTES # (AUTO) 0.4 10^3/uL (0.0-1.0); MONOCYTES % (AUTO) 6.9 %; NEUTROPHILS # (AUTO) 3.2 10^3/uL (1.5-6.6); NEUTROPHILS % (AUTO) 52.1 %; PLT - PLATELET COUNT 357 10^3/uL (130-450); RED BLOOD COUNT 4.15 10^6/uL (4.20-5.40); RED CELL DISTRIBUTION WIDTH 12.6 % (12.0-15.0); WHITE BLOOD COUNT 6.1 x10^3/uL (4.8-10.8)
[2023-10-20 09:13] LABS: ALBUMIN 4.6 g/dL (3.2-5.5); ALBUMIN/GLOBULIN RATIO 1.7 (1.0-2.2); ALKALINE PHOSPHATASE 53 IU/L (42-121); ALT ALANINE AMINOTRANSFERASE 9 IU/L (10-60); AST ASPARTATE AMINOTRANSFERASE 16 IU/L (10-42); BILIRUBIN,TOTAL 0.5 mg/dL (0.2-1.0); BUN - BLOOD UREA NITROGEN 21 mg/dL (6-20); CALCIUM 9.8 mg/dL (8.5-10.3); CARBON DIOXIDE - CO2 24 mmol/L (21-32); CHLORIDE 105 mmol/L (101-111); CHOL/HDL RATIO 3.6 (<4.4); CHOLESTEROL 206 mg/dL; CREATININE 1.2 mg/dL (0.6-1.3); GFR - MDRD 44 (>89); GLUCOSE 117 mg/dL (74-104); HDL CHOLESTEROL 58 mg/dL; LDL CHOLESTEROL,CALCULATED 120 mg/dL; LDL/HDL RATIO 2.1 (<4.4); POTASSIUM 3.4 mmol/L (3.5-4.5); SODIUM 138 mmol/L (135-145); TOTAL PROTEIN 7.3 g/dL (6.4-8.9); TRIGLYCERIDES 140 mg/dL (48-352); VLDL CHOLESTEROL 28 mg/dL
[2023-10-20 09:25] LABS: THYROID STIMULATING HORMONE 1.65 uIU/mL (0.34-5.60)
[2023-10-20 11:36] LABS: ESTIMATED AVERAGE GLUCOSE 100 mg/dL (70-100); HEMOGLOBIN A1c% 5.1 % (4.27-6.07)
--- NOTE | 2023-10-20 12:13 | DEXA Report ---
PROCEDURE: Dexa Spine and/or Hip INDICATIONS: POST MENOPAUSAL TECHNIQUE: Dual energy x-ray absorptiometry (DXA) was performed on a Appear System. Regions measur ed are the AP Spine, femoral neck, and if needed forearm. COMPARISON: DEXA 05/03/2018 FINDINGS: Lumbar Spine: Bone Mineral Density: 1.347 g/cm/cm,T score: 1.4, compared to 1.1. Left Femoral Neck: Bone Mineral Density: 1.0 x 3 g/cm/cm, T score: 0.1, compared to 0.3. Left Hip: Bone Mineral Density: 0.922 g/cm/cm,T score: -0.7, compared to -0.3. (T score greater or equal to -1.0: NORMAL) (T score from -1.1 to -2.4: OSTEOPENIA) (T score less than or equal to -2.5 to: OSTEOPOROSIS) Impression: By WHO criteria, this patient has normal bone mineral density with minimal loss in the femoral neck a nd hip. Mild increased bone mineral density lumbar spine. Patients with diagnosis of osteoporosis or osteopenia should have regular bone mineral density assess ment. For those eligible for Medicare, routine testing is allowed once every 2 years. Testing frequ ency can be increased for patients who have rapidly progressing disease or for those who are receivin g medical therapy to restore bone mass. Reviewed by: Mary Jane Bhatt MD on 10/20/2023 12:12 PM PST Approved by: Mary Jane Bhatt MD on 10/20/2023 12:12 PM PST Station ID: [id number]
== END 2023-10-20 07:57 | disposition home or self-care (01) ==
LOC: DI 07:56
PROVIDERS: ATTEND Nurse Practitioner Family
DX: Z78.0 Asymptomatic menopausal state (principal); Z79.890 Hormone replacement therapy; R53.83 Other fatigue; R07.89 Other chest pain; I10 Essential (primary) hypertension; E78.5 Hyperlipidemia, unspecified; R73.03 Prediabetes
CPT/HCPCS: 36415; 80053; 80061; 83036; 83721; 84443; 85025

== ENCOUNTER 2024-02-14 08:00 | Outpatient (CLI) | payer MEDICARE | END 2024-02-14 23:59 | disposition home or self-care (01) | LOC: LAB.WCP 08:00 | PROVIDERS: ATTEND Physician Assistant Medical | DX: R11.2 Nausea with vomiting, unspecified (principal); R19.7 Diarrhea, unspecified ==

== ENCOUNTER 2024-04-03 13:49 | Outpatient (CLI) | payer MEDICARE ==
[2024-04-03 14:13] LABS: CALCIUM 9.9 mg/dL (8.5-10.3); POTASSIUM 4.5 mmol/L (3.5-4.5)
== END 2024-04-03 13:50 | disposition home or self-care (01) ==
LOC: LAB 13:49
PROVIDERS: ATTEND Nurse Practitioner Family
DX: I12.9 Hypertensive chronic kidney disease with stage 1 through stage 4 chronic kidney disease, or unspecified chronic kidney disease (principal); N18.30 Chronic kidney disease, stage 3 unspecified
CPT/HCPCS: 36415; 80048

== ENCOUNTER 2024-05-05 11:17 | Day surgery (SDC) | payer MEDICARE ==
[2024-05-05] MEDS: LACTATED RINGERS 1,000 ML IV ONE ×2 (11:22→13:04)
[2024-05-05] MEDS ORDERED: PROPOFOL 200 MG/20 ML VIAL IVP ONE (11:46)
[2024-05-05] MEDS ORDERED: LIDOCAINE-MPF 2% 5 ML VIAL ONE (11:50)
--- NOTE | 2024-05-05 11:55 | ANESTHESIA ---
Pre-Anesthesia VS, & Labs - Diagnosis GERD - Procedure EGD with biopsy Vital Signs: Temp Pulse Resp BP Pulse Ox O2 Flow Rate 36.2 C L 67 16 133/71 H 95 0 05/05/24 11:35 05/05/24 11:35 05/05/24 11:35 05/05/24 11:35 05/05/24 11:35 05/05/24 11:35 Height: 5 ft 6 in Weight (kg): 72 kg Body Mass Index: 25.6 BMI Classification: Overweight - NPO >8 hours - Is Patient ?: No Home Medications and Allergies gemfibroziL [Lopid] 600 mg PO BIDAC 02/24/13 Estrogens, Conjugated [Premarin] 0.3 mg ORAL DAILY 03/31/16 Losartan [Cozaar] 100 mg ORAL DAILY 03/31/16 Meloxicam 15 mg PO DAILY 03/31/16 Omeprazole [PriLOSEC] 20 mg ORAL DAILY 03/31/16 hydroCHLOROthiazide [Hydrochlorothiazide] 25 mg ORAL DAILY 03/31/16 Allergies/Adverse Reactions: Allergies Allergy/AdvReac Type Severity Reaction Status Date / Time morphine Allergy Rash Verified 02/25/23 12:38 codeine AdvReac Rash Verified 02/26/23 08:38 lisinopril AdvReac Unknown Verified 02/26/23 08:38 Anes History & Medical History - Anesthetic History Anesthesia Complications: reports: No previous complications - Medical History Cardiovascular: reports: Hypertension, High cholesterol Pulmonary: reports: COPD Gastrointestinal: reports: Hemorrhoids Urinary: reports: None Neuro: reports: None Musculoskeletal: reports: None Endocrine/Autoimmune: reports: None Blood Disorders: reports: None Skin: reports: None Smoking Status: Former smoker (quiy 1999) Psychosocial: reports: Cannabis (occ) History of Cancer?: No - Surgical History General: reports: Appendectomy Eyes Ears Nose Throat (EENT): reports: Cataracts Urologic: reports: Bladder surgery Gynecologic: reports: Hysterectomy Exam General: Alert, Oriented x3, Cooperative, No acute distress Dental: WNL Mouth Openin Fingerbreadth Neck Mobility: Normal Mallampati classification: II Thyromental Distance: 4-6 cm Mental/Cognitive Status: Alert/Oriented X3, Normal for patient Plan Anesthesia Type: General, Total IV Consent for Procedure(s) Verified and Reviewed: Yes Code Status: Attempt Resuscitation ASA classification: 2-Mild systemic disease Is this case an emergency?: No
--- NOTE | 2024-05-05 12:45 | HISTORY & PHYSICAL EXAMINATION ---
Chief Complaint - Chief Complaint Chief Complaint: here for upper endoscopy History of Present Illness - History Obtained From Records Reviewed: yes History obtained from: pt Exam Limitations: none - History of Present Illness HPI Comment/Other: longstanding heartburn. worse symptoms last several months. takes omeprazole every other day History - Past Medical History Cardiovascular: reports: Hypertension, High cholesterol Respiratory: reports: COPD Neuro: reports: None Endocrine/Autoimmune: reports: None GI: reports: Hemorrhoids : reports: None HEENT: reports: None Psych: reports: None Musculoskeletal: reports: None Derm: reports: None MRSA Hx?: No - Past Surgical History General: reports: Appendectomy /[employer]: reports: Hysterectomy HEENT: reports: Cataracts - POLST Patient has POLST: No Meds/Allgy - Home Medications Home Medications: Ambulatory Orders Medication Instructions Recorded Confirmed gemfibroziL [Lopid] 600 mg PO BIDAC 02/24/13 05/04/24 Estrogens, Conjugated [Premarin] 0.3 mg ORAL DAILY 03/31/16 05/04/24 Losartan [Cozaar] 100 mg ORAL DAILY 03/31/16 05/04/24 Meloxicam 15 mg PO DAILY 03/31/16 05/04/24 Omeprazole [PriLOSEC] 20 mg ORAL DAILY 03/31/16 05/04/24 hydroCHLOROthiazide 25 mg ORAL DAILY 03/31/16 05/04/24 [Hydrochlorothiazide] - Allergies Allergies/Adverse Reactions: Allergies Allergy/AdvReac Type Severity Reaction Status Date / Time morphine Allergy Rash Verified 02/25/23 12:38 codeine AdvReac Rash Verified 02/26/23 08:38 lisinopril AdvReac Unknown Verified 02/26/23 08:38 Review of Systems - Other Findings Other Findings: 10 pt ros as above otherwise unremarkable Exam - Vital Signs Vital Signs: Vital Signs x48h Temp Pulse Resp BP Pulse Ox O2 Flow Rate 05/05/24 11:35 36.2 C L 67 16 133/71 H 95 0 - Physical Exam General Appearance: positive: No acute distress, Alert Eyes Bilateral: positive: PERRL, EOMI ENT: positive: No signs of dehydration Neck: positive: No JVD, Trachea midline Respiratory: positive: No respiratory distress Cardiovascular: positive: Regular rate & rhythm Abdomen: positive: No distention Neurologic/Psychiatric: positive: Oriented x3 Conclusion/Plan - Problem List (1) GERD (gastroesophageal reflux disease) Conclusion/Plan: plan egd. parq held and consent obtained
[2024-05-05 13:08] VITALS: O2SAT 96
[2024-05-05 13:29] VITALS: BP 106/61
--- NOTE | 2024-05-05 15:30 | ANESTHESIA POST OP EVALUATION ---
Anesthesia Post Eval - Post Anesthesia Eval Vitals: Last Vital Signs Temp 36.4 C L 05/05/24 13:20 Pulse 52 L 05/05/24 13:20 Resp 16 05/05/24 13:20 BP 106/61 05/05/24 13:20 Pulse Ox 96 05/05/24 13:20 O2 Flow Rate 0 05/05/24 11:35 CV Function Including HR & BP: Stable Pain Control: Satisfactory Nausea & Vomiting: Negative Mental Status: Baseline Respiratory Status: Airway Patent Hydration Status: Satisfactory Anesthesia Complications: None
== END 2024-05-05 11:18 | disposition home or self-care (01) ==
LOC: SDS 11:17
PROVIDERS: ATTEND Surgery
PROC: 0DB38ZX Excision of Lower Esophagus, Via Natural or Artificial Opening Endoscopic, Diagnostic (ICD-10-PCS; principal; 2024-05-05 12:30)
DX: K21.9 Gastro-esophageal reflux disease without esophagitis (principal); K44.9 Diaphragmatic hernia without obstruction or gangrene; I10 Essential (primary) hypertension; J44.9 Chronic obstructive pulmonary disease, unspecified
CPT/HCPCS: 43239; J7120